=== PATIENT | male | born 2005 | race Hispanic/Latino ===

== ENCOUNTER 2025-04-13 21:46 | Emergency (ER) | payer SELFPAY ==
[2025-04-13 21:49] VITALS: BP 127/58; PULSE 88; RESP 18; TEMP 37.1; O2SAT 95; BMI 25.1
[2025-04-14] VITALS (8 sets, daily range): BP systolic 112–133; BP diastolic 53–81; PULSE 63–76; O2SAT 95–100
[2025-04-14] MEDS: ACETAMINOPHEN 325 MG TABLET 975 MG PO (01:30)
--- NOTE | 2025-04-14 02:08 | ED_ITS ---
HPI - Wound/Laceration General Chief Complaint: Wound/Laceration Stated Complaint: fall- trip-thumb lac Time Seen by Provider: 04/14/25 01:32 Source: patient Mode of arrival: EMS Related Data Previous Rx's ?Medication ?Instructions ?Recorded cephalexin 500 mg capsule 500 mg PO QID 3 days #12 cap s 04/14/25 Allergies Allergy/AdvReac Type Severity Reaction Status Date / Time No Known Drug Allergies Allergy Verified 04/13/25 21:49 Patient History Social History Smoking Status: Never smoker Smoking Status: Never smoker tobacco type: vaping Exam Narrative Exam Narrative: GENERAL: Well-developed patient, in mild distress. HEAD: Atraumatic. Normocephalic. EYES: Pupils equal round and reactive. Extraocular motions intact. No scleral icterus. No injection or drainage. ENT: Nose without bleeding, purulent drainage. Throat without erythema, tonsillar hypertrophy or exudate. Airway patent. NECK: Trachea midline. Non tender CARDIOVASCULAR: Regular rate and rhythm without murmurs, gallops, or rubs. RESPIRATORY: Clear to auscultation. Breath sounds equal bilaterally. No wheezes, rales, or rhonchi. GASTROINTESTINAL: Abdomen soft, non-tender, nondistended. EXTREMITIES: Left thumb with fingertip pad flap laceration. No other injuries obvious. BACK: Nontender without deformity or crepitance. No flank tenderness. NEURO: AOx3. Motor functions grossly nonfocal. SKIN: No rash or erythema of visible areas Initial Vital Signs Initial Vital Signs: Vital Signs Temperature 98.8 F 04/13/25 21:49 Pulse Rate 88 04/13/25 21:49 Respiratory Rate 18 04/13/25 21:49 Blood Pressure 127/58 L 04/13/25 21:49 Pulse Oximetry 95 04/13/25 21:49 Oxygen Delivery Method Room Air 04/13/25 21:49 Procedures Laceration Repair Laceration 1: Time of procedure: 03:05 Site: hand (left thumb pad flap laceration, no visible FB or bone) Side (If applicable): left Size (cm): 2 Description: flap Depth: simple, single layer Local Anesthetic: lidocaine 1% (digital block) Amount of anesthesia used (mL): 4 Pre-repair: irrigated extensively Skin layer closed with: nylon Skin layer suture size: 5-0 Number of sutures: 5 Technique: simple, interrupted Course Orders Ordered: ED Orders 04/14/25 02:18 XR finger LT min 2V Stat Discontinued Medications Acetaminophen (Acetaminophen 325 Mg Tablet) 975 mg PO NOW ONE Stop: 04/14/25 01:14 Last Admin: 04/14/25 01:30 Dose: 975 mg Documented By: LESLIE Hydrocodone Bitart/Acetaminophen (Hydrocodone/Acet 5/325 Prepack) 1 bottle MISC DIRECTED ONE Stop: 04/14/25 03:08 Last Admin: 04/14/25 03:30 Dose: 1 bottle Documented By: ENOCH Bacitracin (Bacitracin Oint 0.9 Gm Pckt) 1 applic TOP NOW ONE Stop: 04/14/25 03:17 Last Admin: 04/14/25 03:31 Dose: 1 applic Documented By: ENOCH Cefazolin Sodium (Cephalexin 250 Mg Cap Prepack) 1 bottle MISC DIRECTED ONE Stop: 04/14/25 03:08 Last Admin: 04/14/25 03:30 Dose: 2 cap Documented By: ENOCH Lidocaine HCl (Lidocaine 1% (Pf) 5 Ml) 5 ml INJ NOW ONE Stop: 04/14/25 02:20 Last Admin: 04/14/25 02:22 Dose: 5 ml Documented By: NIKKI Vital Signs Vital signs: Vital Signs - 8 hr 04/13/25 21:49 04/14/25 01:24 04/14/25 01:30 Temperature 98.8 F Pulse Rate 88 68 63 Respiratory Rate 18 Blood Pressure 127/58 L Pulse Oximetry 95 97 96 Oxygen Delivery Method Room Air 04/14/25 01:30 04/14/25 02:00 04/14/25 02:00 Temperature Pulse Rate 67 Respiratory Rate Blood Pressure 119/60 112/53 L Pulse Oximetry 95 Oxygen Delivery Method 04/14/25 02:13 04/14/25 02:30 04/14/25 03:00 Temperature Pulse Rate 76 Respiratory Rate Blood Pressure 133/80 122/81 Pulse Oximetry 98 Oxygen Delivery Method 04/14/25 03:30 04/14/25 03:34 Temperature Pulse Rate 67 Respiratory Rate Blood Pressure 128/69 Pulse Oximetry 100 Oxygen Delivery Method MDM - Wound/Laceration MDM Narrative Medical decision making narrative: Left thumb flap laceration, primary suturing, see report, digital block given, 5 simple sutures tacked down the flap laceration that hopefully will take. No visible bone or foreign body. X-ray left thumb. No fracture or dislocation. Possible 1 mm foreign body. Patient informed, could not see foreign body, x-ray taken before irrigation by nursing might have been removed. Possible to have retained foreign body. We will cover with oral antibiotics. Cephalexin dose given via home pack. Additional cephalexin sent to his pharmacy. Wound check advised next couple of days. Return precautions discussed. Discharge Plan Departure Patient Disposition: Home Clinical Impression: Laceration Instructions: DI for Laceration Repair Activity Restrictions/Additional Instructions: Flap laceration left thumb, cut on something [place], offending agent not seen. Cut pad of left thumb. Flap laceration close with tacked down simple interrupted sutures x5. Antibiotics initiated, home pack cephalexin. Analgesics given, home pack hydrocodone/APAP to use as needed. Discharged home. Wound check advised with PCP in 2 days. Return earlier to this/nearest emergency department for any change worsening symptoms or any concerns prior. Prescriptions: New cephalexin 500 mg capsule 500 mg PO QID 3 Days Qty: 12 0RF Stand Alone Forms: Patient Portal/API
--- NOTE | 2025-04-14 02:18 | DI.RAD.S_ITS ---
PROCEDURE: XR FINGER LT MIN 2V INDICATIONS: cut left thumb, ?glass TECHNIQUE: AP hand, 2 views of the thumb acquired. COMPARISON: None. FINDINGS: Bones: No fractures or dislocations. No suspicious bony lesions. Soft tissues: No suspicious soft tissue calcifications. Ventral tip of thumb laceration with question minimal sized minimally radiopaque foreign body. IMPRESSION: Question very small minimally radiopaque foreign body at the laceration site. This is not definite. No acute bony abnormality. Dictated by: Fredy Hermosillo M.D. on 04/14/2025 at 7:52 Approved by: Fredy Hermosillo M.D. on 04/14/2025 at 7:53
[2025-04-14] MEDS: LIDOCAINE 1% (PF) 5 ML INJ (02:22)
[2025-04-14] MEDS: BACITRACIN OINT 0.9 GM PCKT 1 APPLIC TOP (03:31)
== END 2025-04-14 03:49 | disposition home or self-care (01) ==
PROVIDERS: Emergency Provider Emergency Medicine
DX: S61.012A Laceration without foreign body of left thumb without damage to nail, initial encounter (principal); W01.0XXA Fall on same level from slipping, tripping and stumbling without subsequent striking against object, initial encounter
CPT/HCPCS: 12001; 73140; 99283